=== PATIENT | female | born 2000 | race Caucasian/White ===

== ENCOUNTER 2025-03-22 12:49 | Emergency (ER) | payer MEDICAID, OTHER ==
[~2025-03-22] VITALS: Ht 162.6 cm; Wt 44.5 kg
[2025-03-22 12:54] VITALS: BP 113/99; PULSE 84; RESP 28; TEMP 97.9; O2SAT 97
== END 2025-03-22 14:03 | disposition left against medical advice (07) ==
LOC: EMS 13:57
DX: S41.152A Open bite of left upper arm, initial encounter (principal); Z53.21 Procedure and treatment not carried out due to patient leaving prior to being seen by health care provider; W54.0XXA Bitten by dog, initial encounter; Y93.89 Activity, other specified; Y92.89 Other specified places as the place of occurrence of the external cause; Y99.8 Other external cause status
CPT/HCPCS: 99281; Z7502